=== PATIENT | female | born 1995 | race Caucasian/White ===

== ENCOUNTER → 2016-05-11 | Outpatient (CLI) | payer BC ==
[~2016-05-11] MED LIST: AMIT10TA6 PO; ASTN; FLUT0.15 NAE; INSPMPHMLG; LEVOIUD INT UTER; MGNO400 PO; ONDA4TAB10 SL
--- NOTE | 2016-05-11 14:43 | DIAGNOSTIC IMAGING REPORT ---
EXAMINATION: PELVIC ULTRASOUND (transabdominal and endovaginal scanning) CLINICAL HISTORY: Pelvic pain COMPARISON STUDY: None FINDINGS: The uterus measured 7.0 x 3.6 x 4.4 cm. The endometrial stripe measured 6 mm. An IUD was visualized within the endometrium. The right ovary measured 41 x 20 x 36 mm. There is a 21 mm isoechoic nodule, possibly representing a complex involuted cyst. The left ovary measured 33 x 14 x 25 mm. There is no ultrasonographic evidence of ovarian torsion. It should be noted that ovarian torsion can be present with normal Doppler ultrasonographic findings. There is a small amount of free fluid, likely physiologic. IMPRESSION: 1. Indwelling IUD 2. No myometrial masses 3. Small amount of free fluid likely physiologic 4. 21 mm isoechoic right ovarian nodule. Given the patient's age, in the absence of biochemical abnormalities, this is likely functional. Electronically signed by: Lew Urias M.D. 05/11/2016 2:41 PM Dictated Date/Time: 05/11/2016 2:31 PM
== END | disposition home or self-care (01) ==
LOC: C.ULTR 13:44
PROVIDERS: ATTEND Obstetrics & Gynecology
DX: R10.2 Pelvic and perineal pain (principal); N83.201 Unspecified ovarian cyst, right side

== ENCOUNTER → 2016-12-16 | Outpatient (CLI) | payer BC ==
[2016-12-20 08:20] LABS: CHLAMYDIA TRACH RNA*** NOT DETECTED (NOT DETECTED); GC (NEIS GONORRHOEAE)RNA** NOT DETECTED (NOT DETECTED)
== END | disposition home or self-care (01) ==
LOC: C.LABSPEC 15:41
PROVIDERS: ATTEND Physician Assistant
DX: N89.8 Other specified noninflammatory disorders of vagina (principal)

== ENCOUNTER → 2017-04-03 | Outpatient (CLI) | payer OTHER ==
[~2017-04-03] MED LIST changes: +LEVO1IUD2 INT UTER; -LEVOIUD INT UTER
[2017-04-03 15:22] LABS: ALBUMIN 3.6 gm/dl (3.4-5.0); ALT/SGPT 27 U/L (12-78); BLOOD UREA NITROGEN 12 mg/dl (7-18); CALCIUM 8.9 mg/dl (8.5-10.1); CARBON DIOXIDE 28 mmol/L (21-32); CHOLESTEROL 195 mg/dl (0-200); CREATININE 0.73 mg/dl (0.60-1.20); GLUCOSE 153 mg/dl (70-99); POTASSIUM 3.9 mmol/L (3.5-5.1); SODIUM 138 mmol/L (136-145)
[2017-04-03 15:45] LABS: ALKALINE PHOSPHATASE 78 U/L (45-117); AST/SGOT 15 U/L (15-37); LDL CHOLESTEROL CALCULATED 112 mg/dl; TOTAL PROTEIN 7.2 gm/dl (6.4-8.2)
== END | disposition home or self-care (01) ==
LOC: C.LAB1850 12:40
PROVIDERS: ATTEND Physician Assistant
DX: E10.9 Type 1 diabetes mellitus without complications (principal)